=== PATIENT | female | born 1970 | race Caucasian/White ===

== ENCOUNTER 2016-08-28 10:34 | Emergency (ER) | payer SELFPAY ==
--- NOTE | 2016-08-28 10:56 | ED.PDOC ---
History of Present Illness - General Chief Complaint: General Stated Complaint: nausea/vomiting Time Seen by Provider: 08/28/16 10:48 Source: patient, RN notes reviewed, Vital Signs reviewed Exam Limitations: no limitations - History of Present Illness Initial Comments: Amie Bustamante 45 y/o female stated she had nausea vomiting since early this morning with sharp bilateral flank pains and had also watery diarrhea.No fever / chils ill contact.No hematuria,dysuria.Seen Dr. Guerra -urologist in the past. Timing/Duration: 4-6 hours, intermittent Severity: moderate Improving Factors: rest Worsening Factors: nothing Associated Symptoms: denies symptoms Allergies/Adverse Reactions: Allergies NO KNOWN ALLERGY Allergy (Verified 08/28/16 10:56) Home Medications: Ambulatory Orders Naproxen [Naprosyn] 500 mg PO BID #10 tab 08/28/16 Nitrofurantoin Monohydrate Mac [Macrobid] 100 mg PO BID #14 cap 08/28/16 Tramadol HCl 50 mg PO TID PRN #14 tab 08/28/16 Review of Systems - Review of Systems Constitutional: States: no symptoms reported EENTM: States: no symptoms reported Respiratory: States: no symptoms reported Cardiology: States: no symptoms reported Gastrointestinal/Abdominal: States: see HPI Genitourinary: States: no symptoms reported Musculoskeletal: States: no symptoms reported Skin: States: no symptoms reported Neurological: States: no symptoms reported Endocrine: States: no symptoms reported Hematologic/Lymphatic: States: no symptoms reported Past Medical History (General) - Patient Medical History Hx Seizures: No Hx Stroke: No Hx Dementia: No Hx Asthma: Yes Hx of COPD: No Hx Cardiac Disorders: No Hx Congestive Heart Failure: No Hx Pacemaker: No Hx Hypertension: No Hx Thyroid Disease: No Hx Diabetes: No Hx Renal Disease: Yes - Hx kidney stones Hx Cancer: No Hx of HIV: No Hx Hepatitis C: No Hx MRSA: No Surgical History: other - kidney surgery - Vaccination History Hx Tetanus, Diphtheria Vaccination: No Hx Influenza Vaccination: No Hx Pneumococcal Vaccination: No - Social History Hx Tobacco Use: Yes Hx Chewing Tobacco Use: No Hx Alcohol Use: Yes Hx Substance Use: No Hx Substance Use Treatment: No Hx Depression: No Hx Physical Abuse: No Hx Emotional Abuse: No Hx Suspected Abuse: No - Female History Patient : No Family Medical History - Family History Mother Family History: No Known Living Status: Still Living Hx Family Hypertension: Yes - dad Physical Exam - Physical Exam General Appearance: Alert, Anxious, No apparent distress Eye Exam: bilateral normal Ears, Nose, Throat: hearing grossly normal, normal ENT inspection, normal pharynx Neck: non-tender, full range of motion, supple Respiratory: chest non-tender, lungs clear, normal breath sounds Cardiovascular/Chest: normal peripheral pulses, regular rate, rhythm, no edema, no murmur Peripheral Pulses: radial,right: 2+, radial,left: 2+ Gastrointestinal/Abdominal: normal bowel sounds, non tender, soft, no organomegaly Back Exam: normal inspection, no CVA tenderness, no vertebral tenderness Extremity: normal range of motion, non-tender, normal inspection Neurologic: no motor/sensory deficits, alert, normal mood/affect, oriented x 3 Skin Exam: normal color, warm/dry Lymphatic: no adenopathy Progress - Progress Progress: 08/28/16 13:14 Vital Signs - 8 hr 08/28/16 08/28/16 10:56 11:26 Temperature 96.4 F L Pulse Rate 63 Pulse Rate [ 77 Right Radial] Respiratory 20 24 Rate Blood Pressure 143/92 [Right Arm] O2 Sat by Pulse 96 98 Oximetry - Results/Orders Results/Orders: Vital Signs - 8 hr 08/28/16 08/28/16 08/28/16 10:56 11:26 15:00 Temperature 96.4 F L Pulse Rate 63 Pulse Rate [ 77 62 Right Radial] Respiratory 20 24 16 Rate Blood Pressure 143/92 106/70 [Right Arm] O2 Sat by Pulse 96 98 94 L Oximetry 08/28/16 11:07 SVN/Updraft Therapy .ONCE 08/28/16 13:50 URINE CULTURE W/COLONY COUNT Stat Laboratory Results - last 24 hr 08/28/16 08/28/16 08/28/16 11:00 11:00 13:50 WBC 13.5 H RBC 4.52 Hgb 14.2 Hct 41.8 MCV 92.6 MCH 31.4 H MCHC 34.1 RDW 12.7 Plt Count 430 H MPV 8.1 Absolute Neuts (auto) 10.60 H Absolute Lymphs (auto) 1.90 Absolute Monos (auto) 0.50 Absolute Eos (auto) 0.30 Absolute Basos (auto) 0.10 Neutrophils % 79.1 H Lymphocytes % 13.8 L Monocytes % 3.7 Eosinophils % 2.5 Basophils % 0.9 Sodium 144 Potassium 3.5 L Chloride 103 Carbon Dioxide 27 Anion Gap 17.5 BUN 13 Creatinine 0.89 BUN/Creatinine Ratio 14.6 Random Glucose 131 H Serum Osmolality 288.8 Calcium 10.2 Total Bilirubin 0.8 AST 22 ALT 14 Alkaline Phosphatase 72 Serum Total Protein 7.8 Albumin 4.7 Globulin 3.1 Albumin/Globulin Ratio 1.5 Lipase 46 Urine Color Yellow Urine Appearance Cloudy Urine pH 6.5 Ur Specific [place] 1.025 Urine Protein 100 H Urine Glucose (UA) Negative Urine Ketones Negative Urine Blood Trace-lysed H Urine Nitrite Negative Urine Bilirubin Negative Urine Urobilinogen 0.2 Ur Leukocyte Esterase Moderate H Urine RBC 10-20 H Urine WBC >50 H Ur Epithelial Cells 3-5 Urine Bacteria 4+ H - EKG/XRAY/CT XRAY: chest - mild hyperexpansion O/W unremarkable chest CT Ordered: Yes - Abd/pelvis no obstucting calculus-dania.nephrolithiasis Departure - Departure Clinical Impression: Flank pain, acute, Nephrolithiasis UTI (urinary tract infection) Qualifiers: Urinary tract infection type: site unspecified Hematuria presence: with hematuria Qualified Code(s): N39.0 - Urinary tract infection, site not specified Time of Disposition: 16:48 Disposition: Discharge to Home or Self Care Condition: Good Instructions: Kidney Stones -- Adult, DI for Kidney Stones Prescriptions: Naproxen [Naprosyn] 500 mg PO BID #10 tab Nitrofurantoin Monohydrate Mac [Macrobid] 100 mg PO BID #14 cap Tramadol HCl 50 mg PO TID PRN #14 tab PRN Reason: Pain Home Medications: Ambulatory Orders Naproxen [Naprosyn] 500 mg PO BID #10 tab 08/28/16 Nitrofurantoin Monohydrate Mac [Macrobid] 100 mg PO BID #14 cap 08/28/16 Tramadol HCl 50 mg PO TID PRN #14 tab 08/28/16
[2016-08-28] MEDS ORDERED: SODIUM CHLORIDE 0.9% 1000ML 1,000 ML IVS ONE ×2 (10:57→12:56)
[2016-08-28] MEDS ORDERED: ONDANSETRON INJ 4 MG/2 ML VIAL IV ONE (10:57)
[2016-08-28 11:07] VITALS: TEMP 96.4
[2016-08-28] MEDS ORDERED: IPRATROPIUM/ALBUTEROL 3 ML VIAL NEB ONE (11:07)
--- NOTE | 2016-08-28 11:21 | RAD ---
EXAM DESCRIPTION: Chest,1 View CLINICAL HISTORY: sob COMPARISON: 18 December 2009 TECHNIQUE: AP portable chest FINDINGS: The lungs are clear. The chest is hyperexpanded. The heart is within range of normal. IMPRESSION: Mild hyperexpansion the chest is observed. Exam is otherwise unremarkable. Electronically signed by: Martir Torres MD 08/28/2016 11:20 AM CDT
[2016-08-28] MEDS ORDERED: PROMETHAZINE HCL INJ 25 MG/ML VIAL IM ONE (12:07)
[2016-08-28] MEDS ORDERED: cefTRIAXone SODIUM 1 GM in SODIUM CHL 0.9% 50ML MIN-BAG+ 50 ML IVPB ONE (15:22)
[2016-08-28] MEDS ORDERED: cefTRIAXone SODIUM 1 GM VIAL ONE ×2 (15:31→15:57)
[2016-08-28] MEDS ORDERED: SODIUM CHL 0.9% 50ML MIN-BAG+ 50 ML IVPB ONE ×2 (15:32→15:57)
--- NOTE | 2016-08-28 16:09 | CT ---
CT abdomen and pelvis without contrast INDICATION: Abdominal pain subsequent encounter renal stones TECHNIQUE: Helical CT images through the abdomen and pelvis with coronal and sagittal reformats. This exam was performed according to our departmental dose-optimization program, which includes automated exposure control, adjustment of the mA and/or kV according to patient size and/or use of iterative reconstruction technique. FINDINGS: Lung bases are clear. There is moderate right hydronephrosis. No significant left hydronephrosis. There is a large calculus in the left renal pelvis calcified measuring up to 9 mm in diameter. There is a large stone in the lower pole right kidney measuring 8 mm in diameter. Collecting system dilatation is primarily in the upper pole although no definite duplication is identified. No evidence of dilated right ureter. Therefore this may be due to chronic obstruction or stricture. Contrast infused study may be considered for further characterization for any functional obstruction. There is cortical thinning throughout the right kidney. The left kidney appears fairly small. Previous studies showed varying degrees of obstruction with this high-grade obstruction of the left kidney on the prior study October 08, 2015 There is a calcification in or adjacent to the mid left ureter on series 2 image #50 but there is no evidence of obstruction. There is also a calcification just above the bladder in the midline series 2 image 68. No definite ureteral calculus otherwise. Scattered colonic diverticulosis most pronounced in the sigmoid colon. No active inflammation. No intra-abdominal mass or pathologic adenopathy noted. No destructive osseous lesion or acute fracture. There is linear air in the right buttock suspect recent injection in this area. IMPRESSION: Chronic appearing hydronephrosis right kidney with calculus in lower pole Calculus in the left renal pelvis without obstruction Cortical thinning right kidney and fairly small left kidney likely from previous obstruction/infection Sigmoid diverticulosis without acute diverticulitis Electronically signed by: Teodoro Lewis MD 08/28/2016 4:08 PM CDT
[2016-08-28 17:08] VITALS: BP 107/71; O2SAT 93
== END 2016-08-28 17:07 | disposition home or self-care (01) ==
LOC: ER 10:34
DX: N20.0 Calculus of kidney (principal); N39.0 Urinary tract infection, site not specified; Z87.442 Personal history of urinary calculi; Z87.891 Personal history of nicotine dependence
CPT/HCPCS: 36415; 71010; 74176; 80053; 81001; 83690; 85025; 87086; 87088; 87186; 94640; J0696; J2550; J7030; J7050; J7620

== ENCOUNTER 2016-10-09 13:18 | Observation (INO) | payer SELFPAY ==
[2016-10-09] MEDS ORDERED: HYDROmorphone HCL INJ 2 MG/ML VIAL IV ONE (13:32)
[2016-10-09] MEDS ORDERED: KETOROLAC TROMETHAMINE INJ 30 MG/ML VIAL IM ONE (13:32)
[2016-10-09] MEDS ORDERED: SODIUM CHLORIDE 0.9% 1000ML 1,000 ML IVS ONE ×2 (13:32→18:16)
--- NOTE | 2016-10-09 13:58 | RAD ---
One view abdomen. Indication: left flank pain with hx of stones Comparison: September 26, 2015. Impression: No free air. Bowel gas pattern nonspecific. 7 mm stone within the inferior right kidney with a subtle 2 mm stone in the mid right kidney. Along the inferomedial margin the left kidney there is a 12 mm stone, which may lie within the proximal left ureter and appear slightly more inferior and medial when compared to the prior. No acute osseous abnormality. Electronically signed by: Erasmo Villaseñor MD 10/09/2016 1:56 PM CDT
--- NOTE | 2016-10-09 15:07 | CT ---
EXAM DESCRIPTION: Abdomen/Pelvis w/o Contrast CLINICAL HISTORY: left flank pain, hx stones COMPARISON: CT abdomen/pelvis 08/28/2016 TECHNIQUE: CT of the abdomen and pelvis was performed without contrast. Multiple axial images and multiplanar reconstructions were generated. This exam was performed according to our departmental dose-optimization program, which includes automated exposure control, adjustment of the mA and/or kV according to patient size and/or use of iterative reconstruction technique. FINDINGS: Lung bases: The visualized lung bases are clear. Solid organs: There is severe left hydronephrosis with a 9 mm obstructing calculus just distal to the ureteropelvic junction. Punctate 2 mm nonobstructing left renal calculus. There is a nonobstructing 8 mm calculus in the inferior pole of the right kidney. Moderate right hydronephrosis is again demonstrated. Right renal cortical thinning is again demonstrated. Again demonstrated is a punctate calcification adjacent to the mid left ureter on series 2 image 46, favored to be vascular. Evaluation of the solid organs is limited due to lack of IV contrast. The liver, gallbladder, spleen, pancreas, and adrenal glands are unremarkable. Gastrointestinal: The stomach and small intestine are normal. Colonic diverticulosis is demonstrated without CT evidence for diverticulitis. The appendix is normal. No free fluid or free air. Vascular: The abdominal aorta is normal in caliber. Lymph nodes: No pathologically enlarged lymph nodes are present by CT size criteria. Musculoskeletal and soft tissues: No destructive osseous lesions are present. Urinary bladder and pelvic organs: Several foci of gas are again demonstrated in the nondependent portion of the urinary bladder. Calcification just superior to the urinary bladder at the midline again demonstrated. The uterus and adnexal structures are unremarkable. IMPRESSION: 1. Obstructing 9 mm calculus just distal to the left ureteropelvic junction with severe left hydronephrosis. 2. Again demonstrated is moderate right hydronephrosis without an obstructing calculus visualized. Right renal cortical thinning. 3. Bilateral nonobstructing nephrolithiasis. 4. Foci of gas in the urinary bladder. Correlate for recent instrumentation versus infectious/inflammatory etiologies. 5. Extensive colonic diverticulosis. Electronically signed by: Indra Correia MD 10/09/2016 3:05 PM CDT
[2016-10-09] MEDS ORDERED: CEFEPIME 2 GM in SODIUM CHL 0.9% 50ML MIN-BAG+ 50 ML IVPB ONE (17:07)
[2016-10-09] MEDS ORDERED: CEFEPIME 2 GM VIAL IVPB ONE (17:14)
[2016-10-09] MEDS ORDERED: SODIUM CHL 0.9% 50ML MIN-BAG+ 50 ML IVPB ONE (17:14)
--- NOTE | 2016-10-09 17:28 | RAD ---
EXAM DESCRIPTION: KUB CLINICAL HISTORY: 45 years Female right renal stone COMPARISON: 10/09/[address] TECHNIQUE: Single view of the abdomen. FINDINGS: The upper abdomen was not entirely included on the film. No dilated loops of bowel to suggest obstruction. Calculus overlying the region of the right kidney measuring 9 mm consistent with the inferior pole stone seen on the previous study. Calcific density seen in the region of the left ureter on the previous examination may have been displaced into the left renal collecting system adjacent to the L2 transverse process. This measures 1.4 cm. There are degenerative changes in the lumbar spine. IMPRESSION: Stable appearing right renal lower pole calculus The previously noted calcific density in the left ureter is slightly more cephalad on today's examination and may represent displacement of the calculus into the renal pelvis. Electronically signed by: Vanesa Farley 10/09/2016 5:26 PM CDT
--- NOTE | 2016-10-09 18:19 | ED.PDOC ---
History of Present Illness - General Chief Complaint: Problem Stated Complaint: left flank pain Time Seen by Provider: 10/09/16 13:28 Source: patient Exam Limitations: no limitations - History of Present Illness Initial Comments: the patient is a 45-year-old female presenting to the emergency room secondary to severe left flank pain acute onset several hours prior to arrival. The pain does radiate to the groin. It is colicky in nature. It is similar to her previous pain from previous kidney stones. The patient has a history of right renal pelvis dysfunction and chronic hydronephrosis. She has had surgery on the right kidney before. She had lithotripsy on 813 mm stone about a year and half ago according to her with Dr. Guerra. She does get frequent urinary tract infections and the last several urinary tract infections cultured here have grown out Escherichia coli. the patient was feeling largely normal prior to that. No fevers. No flank pain Timing/Duration: 4-6 hours Severity: severe Improving Factors: nothing Worsening Factors: nothing Associated Symptoms: diaphoresis, loss of appetite, malaise, nausea/vomiting, weakness Allergies/Adverse Reactions: Allergies Albuterol [From Ventolin] Allergy (Verified 10/09/16 14:16) Home Medications: Ambulatory Orders Naproxen [Naprosyn] 500 mg PO BID #10 tab 08/28/16 Nitrofurantoin Monohydrate Mac [Macrobid] 100 mg PO BID #14 cap 08/28/16 Tramadol HCl 50 mg PO TID PRN #14 tab 08/28/16 Review of Systems - Review of Systems Constitutional: States: malaise EENTM: States: no symptoms reported Respiratory: States: no symptoms reported Cardiology: States: no symptoms reported Gastrointestinal/Abdominal: States: abdominal pain, nausea, vomiting Genitourinary: States: dysuria, frequency, pain Musculoskeletal: States: back pain Skin: States: no symptoms reported Neurological: States: no symptoms reported Endocrine: States: excessive sweating All other Systems: No Change from Baseline Past Medical History (General) - Patient Medical History Hx Seizures: No Hx Stroke: No Hx Dementia: No Hx Asthma: Yes Hx of COPD: No Hx Cardiac Disorders: No Hx Congestive Heart Failure: No Hx Pacemaker: No Hx Hypertension: No Hx Thyroid Disease: No Hx Diabetes: No Hx Renal Disease: Yes - Hx kidney stones Hx Cancer: No Hx of HIV: No Hx Hepatitis C: No Hx MRSA: No - Vaccination History Hx Tetanus, Diphtheria Vaccination: No Hx Influenza Vaccination: No Hx Pneumococcal Vaccination: No - Social History Hx Tobacco Use: Yes Hx Chewing Tobacco Use: No Hx Alcohol Use: Yes Hx Substance Use: No Hx Substance Use Treatment: No Hx Depression: No Hx Physical Abuse: No Hx Emotional Abuse: No Hx Suspected Abuse: No - Activities of Daily Living Hospice Agency (if applicable):: None - Female History Patient is a Female of Child Bearing Age (10 -59 yrs old): No Patient : No Family Medical History - Family History Mother Family History: No Known Living Status: Still Living Hx Family Hypertension: Yes - dad Physical Exam - Physical Exam General Appearance: Alert, Obvious distress Eye Exam: bilateral normal Ears, Nose, Throat: hearing grossly normal, normal ENT inspection, normal pharynx - oor dentition Neck: full range of motion, supple Respiratory: chest non-tender, lungs clear, normal breath sounds, no respiratory distress, no accessory muscle use Cardiovascular/Chest: normal peripheral pulses, regular rate, rhythm, no edema Peripheral Pulses: radial,right: 2+, radial,left: 2+, dorsalis pedis,right: 2+, dorsalis pedis,left: 2+ Gastrointestinal/Abdominal: non tender, soft Rectal Exam: deferred Back Exam: CVA tenderness (L) Extremity: normal range of motion, non-tender, normal inspection, no pedal edema , normal capillary refill Neurologic: dental officer II-XII nml as tested, alert, oriented x 3 Skin Exam: normal color Comments: Vital Signs - 24 hr 10/09/16 10/09/16 13:20 16:45 Temperature 97 F L Pulse Rate [ 67 60 pulse ox] Respiratory 20 16 Rate Blood Pressure 159/79 94/61 [Right Arm] O2 Sat by Pulse 95 97 Oximetry Progress - Progress Progress: 10/09/16 18:36 he patient is a 45-year-old female presenting to the emergency room secondary to pain from an obstructing left kidney stone. She does also appear to have a urinary tract infectionand a poorly functioning right kidney. I have discussed the patient with Dr. Barragan at [facility] who recommended treating her here overnight with pain medications as necessary as well as IV antibiotics and fluids. In the morning, as she is not septic she should be able to be sent to Dr. Dowds clinic for lithotripsy. The patient has empirically been placed on cefepime based on previous culture. Follow closely overnight. - Results/Orders Results/Orders: Laboratory Results - last 24 hr 10/09/16 10/09/16 10/09/16 13:40 13:40 13:40 WBC 13.6 H RBC 4.71 Hgb 14.8 Hct 43.7 MCV 92.7 MCH 31.4 H MCHC 33.9 RDW 13.1 Plt Count 311 MPV 8.3 Absolute Neuts (auto) 11.60 H Absolute Lymphs (auto) 1.30 Absolute Monos (auto) 0.50 Absolute Eos (auto) 0.10 Absolute Basos (auto) 0.00 Neutrophils % 85.8 H Lymphocytes % 9.5 L Monocytes % 3.4 Eosinophils % 1.0 Basophils % 0.3 PT 10.7 INR 0.950 PTT (SP) 36.9 H Sodium 141 Potassium 4.1 Chloride 106 Carbon Dioxide 23 Anion Gap 16.1 BUN 12 Creatinine 0.97 BUN/Creatinine Ratio 12.4 Random Glucose 163 H Serum Osmolality 284.6 Calcium 10.5 H Total Bilirubin 1.2 H AST 20 ALT 12 Alkaline Phosphatase 63 Serum Total Protein 7.8 Albumin 4.7 Globulin 3.1 Albumin/Globulin Ratio 1.5 Urine Color Urine Appearance Urine pH Ur Specific [place] Urine Protein Urine Glucose (UA) Urine Ketones Urine Blood Urine Nitrite Urine Bilirubin Urine Urobilinogen Ur Leukocyte Esterase Urine RBC Urine WBC Ur Epithelial Cells Urine Bacteria 10/09/16 16:30 WBC RBC Hgb Hct MCV MCH MCHC RDW Plt Count MPV Absolute Neuts (auto) Absolute Lymphs (auto) Absolute Monos (auto) Absolute Eos (auto) Absolute Basos (auto) Neutrophils % Lymphocytes % Monocytes % Eosinophils % Basophils % PT INR PTT (SP) Sodium Potassium Chloride Carbon Dioxide Anion Gap BUN Creatinine BUN/Creatinine Ratio Random Glucose Serum Osmolality Calcium Total Bilirubin AST ALT Alkaline Phosphatase Serum Total Protein Albumin Globulin Albumin/Globulin Ratio Urine Color Yellow Urine Appearance Turbid Urine pH 6.0 Ur Specific [place] >= 1.030 Urine Protein >=300 H Urine Glucose (UA) Negative Urine Ketones Negative Urine Blood Moderate H Urine Nitrite Positive H Urine Bilirubin Negative Urine Urobilinogen 0.2 Ur Leukocyte Esterase Small H Urine RBC Tntc H Urine WBC Tntc H Ur Epithelial Cells 1-3 Urine Bacteria 4+ H Departure - Departure Clinical Impression: Ureterolithiasis Urinary tract infection Qualifiers: Urinary tract infection type: acute cystitis Hematuria presence: with hematuria Qualified Code(s): N30.01 - Acute cystitis with hematuria Disposition: Admit Patient Home Medications: Ambulatory Orders Naproxen [Naprosyn] 500 mg PO BID #10 tab 08/28/16 Nitrofurantoin Monohydrate Mac [Macrobid] 100 mg PO BID #14 cap 08/28/16 Tramadol HCl 50 mg PO TID PRN #14 tab 08/28/16 Decision To Admit - Decistion To Admit Decision to Admit Reason: Medical Nature Decision to Admit Date: 10/09/16 Decision to Admit Time: 18:39
--- NOTE | 2016-10-09 18:25 | HP ---
SUPERVISING PHYSICIAN: Brien Reyes M.D. CHIEF COMPLAINT: Left flank pain. HISTORY OF PRESENT ILLNESS: Ms. Matute is a 45 year-old female patient with a longstanding history of chronic kidney stones. She presented to the Emergency Department today complaining that she was having severe left flank pain that was acute onset several hours before she was presenting to the Emergency Department. She noted the pain was radiating into her groin. She notes that it is a similar pain that she has had in the past from her kidney stones. She does have a history of right renal pelvis dysfunction and chronic hydronephrosis. She has also had surgery previously on her right kidney. She has had a lithotripsy in the past for a 13 mm stone about a year ago performed by Dr. Guerra. She also notes that she gets frequent urinary tract infections with the last culture noted on last E. R. visit to be 08/28/16 with Escherichia coli. An abdominal/pelvic CT was completed that showed she had an obstructing 9 mm calculous just distal to the left ureteropelvic junction with severe left hydronephrosis. There is also mention in the CT that she had a moderate right hydronephrosis without any obstructing calculous visualize with right renal cortical thinning. Laboratory studies showed that she had a leukocytosis of 13.6 with hemoglobin 14.8, hematocrit 43.7, platelet count 311,000. Differential did show a left shift. Coagulation studies showed a normal PT with a slightly elevated PTT of 36.9. Chemistries showed normal electrolytes with potassium 4.1, bilirubin was slightly elevated at 1.2. All other liver functions were within normal limits. Urinalysis showed large amount of protein being greater than 300 with a moderate amount of blood, positive nitrites, small amount of leukocyte esterase and microscopic revealing too numerous to count RBCs and WBCs with 4+ bacteria and only [address] Quintero, E. R. physician, contacted Dr. Barragan in regards to the findings with the concerns for the obstructing left kidney stone and he recommended treating her at [facility] overnight with pain medications as needed as well as some IV antibiotics and fluids, and if she is not presenting as septic tomorrow morning she should be able to present to Dr. Guerra's office for lithotripsy. She was started on Cefepime given the previous culture results and the severity of her previous infections as well as the obstructing renal stone. She will now be placed in Observation for further treatment and evaluation. PAST MEDICAL HISTORY: 1. Lengthy history of multiple kidney stones. 2. Asthma. PAST SURGICAL HISTORY: 1. Right kidney surgery at age 14. 2. She has had 1 basket retrieval with stent placement. 3. Lithotripsy for an obstructing kidney stone performed by Dr. Guerra. CURRENT MEDICATIONS: 1. Ventolin handheld inhaler every 4 hours as needed. ALLERGIES: BEE STINGS. FAMILY HISTORY: Significant for diabetes and hypertension. SOCIAL HISTORY: She lives in [place]. She is unemployed. She does admit to smoking about 1/2 pack a day for well over 25 years. She does drink alcohol but on a very rare basis. Denies any illicit drug use. REVIEW OF SYSTEMS: CONSTITUTIONAL: She notes that she has had some general aches and malaise but no reported fevers. HEENT: Denies any nasal congestion, headaches, vision changes. RESPIRATORY: Does have some wheezing and a cough that is nonproductive, but history of asthma. CARDIOVASCULAR: Denies any chest pains, palpitations or any syncopal episodes. ABDOMEN: Some mild abdominal pain on the left with nausea and vomiting. GENITOURINARY: As noted, dysuria, frequency and pain with History of Present Illness a noted above. NEUROLOGIC: Denies any syncopal episodes or neurological symptoms such as dizziness, ataxia or other neuromotor deficits. PHYSICAL EXAMINATION: VITAL SIGNS: Temperature on admission was 96.4, pulse 60, blood pressure 94/61 , respirations 16, satting 97% on room air. Admission weight 43.2 kg. GENERAL: On examination in the Emergency Room, the patient was resting and comfortable, and appeared to be in no acute distress, but was noted to be in obvious distress on admission prior to administration of pain medicine to include Toradol and Dilaudid. HEENT: Tympanic membranes were clear bilaterally. Oropharynx was pink and moist with notable poor dentition but no lesions. NECK: Supple, non-tender with full range of motion. No jugular venous distention. CHEST: Some faint rhonchi posteriorly on the bilateral bases, otherwise lungs are clear to auscultation. CARDIOVASCULAR: Regular rate and rhythm without appreciable murmurs, gallops, or rubs. ABDOMEN: Non-tender, soft with positive bowel sounds. BACK: She had notable CVA tenderness on the left, none on the right. EXTREMITIES: No clubbing, cyanosis or edema. NEUROLOGIC: She was alert and oriented times three. Cranial nerves II-XII are grossly intact. There was no notable neuromotor sensory deficit. LABORATORY: White count showed a leukocytosis of 13.6, hemoglobin 14.8, hematocrit 43.7, platelet count 311,000. Differential did show a left shift. Coagulation studies showed just a slightly elevated PTT of 36.9. Chemistries showed normal electrolytes with potassium 4.1, BUN 12, creatinine 0.97, calcium 10.5. Total bilirubin was 1.2. Other liver functions showed to be within normal limits. Urinalysis showed greater than 300 of protein with a moderate amount of blood, positive nitrites, small amount of leukocyte esterase. Microscopic revealed too numerous to count RBCs and WBCs, 1 to 3 epithelials with 4+ bacteria. Urine HCG was negative. MICROBIOLOGY: Urine culture is pending. RADIOLOGY: Initially she had a KUB x-ray in the Emergency Department per radiology interpretation there was note of nonspecific bowel gas pattern. No free air. A 7 mm stone in the inferior right kidney with subtle 2 mm stone in the mid right kidney along with the inferomedial margin left kidney there was a 12 mm stone which may lie within the proximal left ureter in appearance. This was followed-up with a CT abdomen and pelvis with contrast and per radiology interpretation there was note of obstructing 9 mm calculous distal to the left ureteropelvic junction with severe left hydronephrosis. Also was noted again demonstrated moderate right hydronephrosis without any obstructing calculous visualized. There was note of extensive colonic diverticulosis. ASSESSMENT: 1. Obstructing 9 mm renal calculous in the left ureteropelvic junction with severe hydronephrosis. 2. Chronic moderate right hydronephrosis without any mention of obstructing calculous visualized. 3. Bilateral nonobstructing nephrolithiasis. 4. CT evidence of extensive colonic diverticulosis but no mention of diverticulitis. 5. Complicated cystitis secondary to extensive history of multiple urinary tract infections and nephrolithiasis with hydronephrosis and current obstructing calculous in the left kidney. 6. Chronic obstructive pulmonary disease and asthma. 7. Chronic tobacco abuse. 8. Leukocytosis secondary to developing cystitis with some possible demarginalization from pain from number 1. PLAN: The patient will be placed in Observation tonight and started in fluids, given Zofran as needed and Surrency for pain control. She was given Toradol in the Emergency Department 60 mg IM as well as started on antibiotic therapy to include Cefepime which will be continued based off past history and a history of complicated urinary tract infection, and chronic nephrolithiasis awaiting final culture results to further target antibiotic therapy. Dr. Quintero did call and talk to Dr. Barragan as noted above in regards to if the patient is stable , discharge the patient to followup with Dr. Guerra in the office in the morning for possible lithotripsy. Will await reassessment in the morning with repeat laboratory studies and should the patient show to be clinically stable and able to be discharged, I will discuss with Dr. Guerra arrangements for lithotripsy. Will anticipate length of stay to be 1 to 2 days. Given her rhonchi and past history of COPD and asthma with a cough, will start her on some DuoNeb treatments as well. Until discharge, will continue to monitor the patient closely and treat appropriately. #[id number] [facility]
[2016-10-09] MEDS ORDERED: SODIUM CHLORIDE 0.9% (FLUSH) 10 ML SYG IV PRN (19:12)
[2016-10-09] MEDS ORDERED: HYDROcodone 5MG/APAP 325MG 1 EA TAB PO PRN (19:15)
[2016-10-09] MEDS ORDERED: KCL 20MEQ/0.45% NS 1,000 ML IVS PRN (19:20)
[2016-10-09] MEDS ORDERED: ONDANSETRON INJ 4 MG/2 ML VIAL IV PRN (19:22)
[2016-10-09] MEDS ORDERED: ACETAMINOPHEN 325 MG TAB PO PRN (19:23)
[2016-10-09] MEDS ORDERED: IV SET AND CAP CHANGE INJ INJ SCH (19:30)
[2016-10-09] MEDS: ALBUTEROL SULFATE 2.5 MG/3 ML VIAL NEB SCH (21:37)
[2016-10-10] MEDS ORDERED: CEFEPIME 2 GM VIAL IVPB ONE (02:31)
[2016-10-10] MEDS ORDERED: SODIUM CHLORIDE 0.9% 50ML 50 ML ONE (02:32)
[2016-10-10] MEDS ORDERED: CEFEPIME 2 GM in SODIUM CHL 0.9% 50ML MIN-BAG+ 50 ML IVPB SCH (06:00)
[2016-10-10] MEDS: ALBUTEROL SULFATE 2.5 MG/3 ML VIAL NEB SCH (08:15)
[2016-10-10 10:18] VITALS: BP 100/66; TEMP 98.8; O2SAT 97
[2016-10-10] MEDS ORDERED: KETOROLAC TROMETHAMINE INJ 30 MG/ML VIAL IV ONE (10:27)
--- NOTE | 2016-10-14 10:36 | DS ---
SUPERVISING PHYSICIAN: Brien Reyes MD DISCHARGE DIAGNOSIS: 1. Obstructing 9 mm renal calculous in the left ureteropelvic junction with severe hydronephrosis. 2. Chronic moderate right hydronephrosis without any mention of obstructing calculous visualized. 3. Bilateral nonobstructing nephrolithiasis. 4. CT evidence of extensive colonic diverticulosis, but no mention of diverticulitis. 5. Complicated cystitis secondary to extensive history of multiple urinary tract infections and nephrolithiasis with hydronephrosis and current obstructing calculous in the left kidney. 6. Chronic obstructive pulmonary disease with asthma. 7. Chronic tobacco abuse. 8. Leukocytosis secondary to developing cystitis with some possible demargination from pain from #1. HISTORY OF PRESENT ILLNESS: Ms. Matute is a 45-year-old, female patient with a longstanding history of chronic kidney stones. She presented to the Emergency Department complaining that she was having severe left flank pain that was acute onset several hours before she presenting to the Emergency Department. She noted the pain was radiating into her groin. She notes that it is a similar pain that she has had in the past from her kidney stones. She does have a history of right renal pelvis dysfunction and chronic hydronephrosis. She has also had surgery previously on her right kidney. She has had a lithotripsy in the past for a 13 mm stone about a year previous performed by Dr. Guerra. She also notes that she gets frequent urinary tract infections with her stones and the last culture noted on last Emergency Room visit on 08/28/16 with Escherichia coli. An abdominal/pelvic CT was completed in the Emergency Department that showed she had an obstructing 9 mm calculous just distal to the left ureteropelvic junction with severe left hydronephrosis. There is also mention in the CT that she had a moderate right hydronephrosis without any obstructing calculous visualized with right renal cortical thinning. Laboratory studies showed that she had a leukocytosis of 13.6 with hemoglobin 14.8, hematocrit 43.7, platelet count 311,000. Differential did show a left shift. Coagulation studies showed a normal PT with a slightly elevated PTT of 36.9. Chemistries showed normal electrolytes with potassium 4.1 , bilirubin was slightly elevated at 1.2. All other liver functions were within normal limits. Urinalysis showed large amount of protein being greater than 300 with a moderate amount of blood, positive nitrites, small amount of leukocyte esterase and microscopic revealing too numerous to count RBCs and WBCs with 4+ bacteria and only [address] Quintero, ER physician, contacted Dr. Barragan in regards to the findings with the concerns for the obstructing left kidney stone and he recommended treating her at [facility] overnight with pain medications, IV antibiotics and fluids, and if she is not presenting as septic the next morning, she would be able to present to Dr. Guerra's office for lithotripsy the following Thursday. She was started on cefepime given the previous culture results and the severity of her previous infections as well as the obstructing renal stone. She was placed in Observation for further treatment and evaluation in stable condition. LABORATORY: White count did show a leukocytosis of 13.6 initially and at discharge was 7.7. Hemoglobin and hematocrit stabilized at 12.2 and 36.3. Platelet count 204,000. Differential did show an initial left shift, but this resolved with initiation of antibiotics. PT 10.7, PT-T 36.9. Chemistries showed normal electrolytes with potassium 4.1. At discharge, it was 3.6. BUN 13, creatinine 0.82. Liver functions showed slightly elevated bilirubin of 1.2 , otherwise liver functions within normal limits. Urinalysis showed greater than 300 protein, moderate amount of blood, positive nitrates, small amount of leukocyte esterase. Microscopic revealed too numerous to count WBCs and RBCs, 1 to 3 epithelials and 4+ bacteria. Urine HCG was negative. MICROBIOLOGY: Final urine culture did show an Escherichia coli was that resistant to ampicillin, Unasyn, Cipro, levofloxacin, piperacillin, and tobramycin, but sensitive to Bactrim, which was what the patient was sent home on. RADIOLOGY: KUB x-ray in the Emergency Department on admission which showed 7 mm stone within the inferior right kidney with a subtle 2 mm stone in the right mid kidney along with inferomedial margin of the left kidney with a 12 mm stone which may lie within the proximal left ureter and appears slightly more inferior and medial when compared to previous. There was noted bowel gas pattern to be nonspecific. This was followed up with a CT of the abdomen and pelvis without contrast and per radiologic interpretation there was noted obstructing 9 mm calculus just distal to the left ureteropelvic junction with severe hydronephrosis. There was again demonstrated a moderate right hydronephrosis without any obstructing calculus visualized and right renal cortical thinning. There was also note of bilateral nonobstructing nephrolithiasis. Also was noted foci of gas within the urinary bladder which was to be correlated by instrumentation versus infectious or inflammation etiology. Also, extensive colonic diverticulosis. HOSPITAL COURSE: Ms. Urena was placed in observation as noted in history of present illness for an obstructing calculi. She was given pain medicine with Toradol IM, Phenergan and IV fluids. She did have near resolution of her pain with Toradol. On the morning of discharge, pain was well controlled. She was stable. She was having no nausea or vomiting and had been started on cefepime. PLAN: The patient was discharged on 10/10/16 with instructions to followup with Dr. Guerra the coming Thursday for possible lithotripsy procedure. She was to resume home medications as directed and take all other medications as instructed. She was encouraged to drink fluids to prevent dehydration. She was to screen her urine and if any stones were passed, to save and take to Dr. Guerra on her followup visit. She was told to return to the hospital should she have any worsening of her pain or any fevers or any other concerning symptoms. At discharge, prescriptions included: 1. Ultram 1 to 2 capsules q.4h. as needed, #30 (written by Dr. Guerra and sent to [facility]). 2. AZO urinary pain relief 2 tablets 3 times daily as needed for pain. 3. Bactrim DS 1 twice daily, #20. Diet at discharge was usual as tolerated. Activity to increase as tolerated. Discharge condition was stable and improved. [facility][id number] [facility]
== END 2016-10-10 12:30 | disposition home or self-care (01) ==
LOC: ER 13:18 → MS 18:25
PROVIDERS: ADMIT Nurse Practitioner Family; ATTEND Nurse Practitioner Family
DX: N13.2 Hydronephrosis with renal and ureteral calculous obstruction (principal); K57.30 Diverticulosis of large intestine without perforation or abscess without bleeding; N30.01 Acute cystitis with hematuria; B96.20 Unspecified Escherichia coli [E. coli] as the cause of diseases classified elsewhere; J44.9 Chronic obstructive pulmonary disease, unspecified; J45.909 Unspecified asthma, uncomplicated; F17.210 Nicotine dependence, cigarettes, uncomplicated; D72.829 Elevated white blood cell count, unspecified; Z87.442 Personal history of urinary calculi; Z79.899 Other long term (current) drug therapy; Z91.030 Bee allergy status; Z83.3 Family history of diabetes mellitus; Z82.49 Family history of ischemic heart disease and other diseases of the circulatory system
CPT/HCPCS: 36415 ×2; 74000 ×2; 74176; 80048; 80053; 81001; 81025; 85025 ×2; 85610; 85730; 87086; 87088; 87186; 94640 ×2; 96361 ×2; 96365; 96372; 96375 ×2; 96376; 99284; 99406; A4216; G0378; J0692 ×2; J1170; J1885 ×2; J3480; J7030 ×2; J7050; J7611 ×2

== ENCOUNTER 2017-04-08 17:16 | Emergency (ER) | payer SELFPAY ==
[2017-04-08] MEDS ORDERED: KETOROLAC TROMETHAMINE INJ 30 MG/ML VIAL IV ONE (19:05)
[2017-04-08] MEDS ORDERED: ONDANSETRON INJ 4 MG/2 ML VIAL IV ONE (19:06)
--- NOTE | 2017-04-08 19:09 | ED.PDOC ---
History of Present Illness - General Chief Complaint: Problem Stated Complaint: Left lower back discomfort Time Seen by Provider: 04/08/17 19:05 Source: patient Exam Limitations: no limitations - History of Present Illness Initial Comments: ACUTE ONSET OF LEFT FLANK PAIN AT 1630 HRS. SHE HAS A HX OF RENAL COLIC AND THIS FEELS LIKE ONE. Timing/Duration: just prior to arrival Quality: severe Onset Location: left flank Radiation: LLQ Activites at Onset: none Improving Factors: nothing Worsening Factors: nothing Associated Symptoms: denies symptoms Allergies/Adverse Reactions: Allergies NO KNOWN ALLERGY Allergy (Verified 10/09/16 20:55) Home Medications: Ambulatory Orders Albuterol Inhaler [Ventolin Hfa Inhaler] 1 puff INH PRN PRN 10/09/16 Ketorolac Tromethamine 10 mg PO TID #15 tab 04/08/17 Tramadol HCl 50 mg PO Q6HRS #20 tab 04/08/17 levoFLOXacin [Levaquin] 500 mg PO DAILY #10 tab 04/08/17 Review of Systems - Review of Systems Constitutional: States: malaise EENTM: States: no symptoms reported Respiratory: States: no symptoms reported Cardiology: States: no symptoms reported Gastrointestinal/Abdominal: States: nausea, vomiting Genitourinary: States: dysuria, other - FLANK PAIN Musculoskeletal: States: back pain Skin: States: no symptoms reported Neurological: States: no symptoms reported Endocrine: States: no symptoms reported Hematologic/Lymphatic: States: no symptoms reported Past Medical History (General) - Patient Medical History Hx Seizures: No Hx Stroke: No Hx Dementia: No Hx Asthma: Yes Hx of COPD: Yes Hx Cardiac Disorders: No Hx Congestive Heart Failure: No Hx Pacemaker: No Hx Hypertension: No Hx Thyroid Disease: No Hx Diabetes: No Hx Renal Disease: - Hx kidney stones Hx Cancer: No Hx of HIV: No Hx Hepatitis C: No Hx MRSA: No Surgical History: tonsillectomy - Vaccination History Hx Tetanus, Diphtheria Vaccination: No Hx Influenza Vaccination: No Hx Pneumococcal Vaccination: No - Social History Hx Tobacco Use: Yes Hx Chewing Tobacco Use: No Hx Alcohol Use: No Hx Substance Use: No Hx Substance Use Treatment: No Hx Depression: No Hx Physical Abuse: No Hx Emotional Abuse: No Hx Suspected Abuse: No - Female History Patient is a Female of Child Bearing Age (10 -59 yrs old): No Patient : No Family Medical History - Family History Mother Family History: No Known Living Status: Still Living Hx Family Hypertension: Yes - dad Physical Exam - Physical Exam General Appearance: Alert, Obvious distress Eyes, Ears, Nose, Throat Exam: PERRL/EOMI, normal ENT inspection Neck: non-tender, full range of motion Cardiovascular/Respiratory: regular rate, rhythm, normal peripheral pulses Gastrointestinal/Abdominal: normal bowel sounds, non tender, soft, no organomegaly, no pulsatile mass Rectal Exam: deferred Back Exam: normal inspection, CVA tenderness (L) Extremity: normal range of motion, non-tender, normal inspection, no pedal edema Neurologic: normal mood/affect, oriented x 3 Skin Exam: normal color Progress - Results/Orders Results/Orders: LAB IS REPORTED: WBC'S OF 17,000, 80% SEGMENTED NEUTROPHILS,; THE UA HAS TNTC WBC'S AND RBC'S. WILL OBTAIN A CT ABDOMEN TO R/O STONE. THE PAIN IS IMPROVED TO 4/10 THE IMAGING IS REPORTED. THERE IS A 10 MM STONE ON THE LEFT PROXIMAL URETER WITH MOD HYDRONEPHROSIS. THERE ARE ALSO TWO SMALLER STONES NOTED ON THE LEFT MID URETER. THE PATIENT IS PAIN FREE AT THIS TIME. SHE HAS SEEN DR. GUZMAN IN THE PAST AND I HAVE RECOMMENDED THAT SHE SEES HIM VERY SOON. A COPY OF THE CT SCAN WILL BE PROVIDED TO THE PATIENT. Departure - Departure Clinical Impression: Ureterolithiasis Urinary tract infection Qualifiers: Urinary tract infection type: site unspecified Hematuria presence: with hematuria Qualified Code(s): N39.0 - Urinary tract infection, site not specified Time of Disposition: 22:41 Disposition: Discharge to Home or Self Care Condition: Good Departure Forms: ED Discharge - Pt. Copy, Patient Portal Self Enrollment Instructions: DI for Kidney Infection, DI for Kidney Stones Diet: resume usual diet Activity: increase activity as tolerated Referrals: KATHY GUZMAN MD [Referring] - 1-2 Days Prescriptions: Tramadol HCl 50 mg PO Q6HRS #20 tab Ketorolac Tromethamine 10 mg PO TID #15 tab levoFLOXacin [Levaquin] 500 mg PO DAILY #10 tab Home Medications: Ambulatory Orders Albuterol Inhaler [Ventolin Hfa Inhaler] 1 puff INH PRN PRN 10/09/16 Ketorolac Tromethamine 10 mg PO TID #15 tab 04/08/17 Tramadol HCl 50 mg PO Q6HRS #20 tab 04/08/17 levoFLOXacin [Levaquin] 500 mg PO DAILY #10 tab 04/08/17
[2017-04-08] MEDS ORDERED: cefTRIAXone SODIUM 1 GM in SODIUM CHL 0.9% 50ML MIN-BAG+ 50 ML IVPB ONE (21:21)
[2017-04-08] MEDS ORDERED: SODIUM CHL 0.9% 50ML MIN-BAG+ 50 ML IVPB ONE (21:34)
[2017-04-08] MEDS ORDERED: cefTRIAXone SODIUM 1 GM VIAL ONE (21:34)
--- NOTE | 2017-04-08 22:04 | CT ---
EXAM DESCRIPTION: Abdoment/Pelvis w/o Contrast CLINICAL HISTORY: left flank pain COMPARISON: None Available. TECHNIQUE: Contiguous axial images of the abdomen and pelvis were obtained followed by reconstruction images. This exam was performed according to our departmental dose-optimization program, which includes automated exposure control, adjustment of the mA and/or kV according to patient size and/or use of iterative reconstruction technique. FINDINGS: Stone in the right kidney measures approximately 6 mm. Stone in the proximal left ureter measures 10 mm. In the mid left ureter are two stones measuring up to 6 mm. There is moderate to moderately severe left hydronephrosis and moderate right hydronephrosis. There is colonic diverticulosis without evidence of diverticulitis. The urinary bladder is not well distended. There is mild irregular thickening of the posterior urinary bladder wall, which is nonspecific. This could be transient related to underdistention. Cystitis is not excluded. Neoplasm is much less likely. The gallbladder is unremarkable by CT criteria. Adrenal glands are within normal limits. Aorta is of normal caliber and tapering. There is no free fluid in the abdomen or pelvis. There is no bowel obstruction. There is no stranding of the mesenteric fat to suggest an inflammatory response. IMPRESSION: Left ureteral stones. Bilateral hydronephrosis. See additional findings above. Electronically signed by: Lyndon Diehl 04/08/2017 10:03 PM [facility]
[2017-04-08 23:06] VITALS: BP 95/60; TEMP 98.3; O2SAT 90
== END 2017-04-08 23:10 | disposition home or self-care (01) ==
LOC: ER 17:16
DX: N13.2 Hydronephrosis with renal and ureteral calculous obstruction (principal); N39.0 Urinary tract infection, site not specified; J44.9 Chronic obstructive pulmonary disease, unspecified
CPT/HCPCS: 36415; 74176; 80053; 81001; 85025; 87086; J0696; J1885; J2405; J7050

== ENCOUNTER 2017-04-17 19:42 | Emergency (ER) | payer SELFPAY ==
[2017-04-17] MEDS ORDERED: KETOROLAC TROMETHAMINE INJ 30 MG/ML VIAL IV ONE (20:46)
[2017-04-17] MEDS ORDERED: ONDANSETRON INJ 4 MG/2 ML VIAL IV ONE (20:47)
[2017-04-17] MEDS ORDERED: SODIUM CHLORIDE 0.9% 1000ML 1,000 ML IVS ONE (20:47)
--- NOTE | 2017-04-17 20:49 | ED.PDOC ---
History of Present Illness - General Chief Complaint: Abdominal Pain Stated Complaint: Abd pain Time Seen by Provider: 04/17/17 20:44 Information Source: patient Exam Limitations: no limitations - History of Present Illness Initial Comments: LEFT FLANK PAIN, ONSET SEVERAL HOURS AGO. SHE HAS A HX OF RENAL COLIC AND AND WAS RECENTLY SEEN IN THE ED FOR THE SAME. SHE RATES THE PAIN AT 8/10 ASSOCIATED WITH NAUSEA AND VOMITING. SHE WAS HERE A WEEK AGO WITH SIMILAR PROBLEMS. DID NOT F/U WITH UROLOGIST. Abdominal Pain Onset Location: LLQ, flank Quality: severe Timing/Duration: 1-3 hours Improving Factors: nothing Worsening Factors: nothing Associated Symptoms: back pain, nausea/vomiting Review of Systems - Review of Systems Constitutional: States: no symptoms reported EENTM: States: no symptoms reported Respiratory: States: no symptoms reported Cardiology: States: no symptoms reported Gastrointestinal/Abdominal: States: abdominal pain, nausea, vomiting Genitourinary: States: dysuria Musculoskeletal: States: no symptoms reported Skin: States: no symptoms reported Neurological: States: no symptoms reported Endocrine: States: no symptoms reported Hematologic/Lymphatic: States: no symptoms reported All other Systems: Reviewed and Negative Past Medical History (General) - Patient Medical History Hx Seizures: No Hx Stroke: No Hx Dementia: No Hx Asthma: Yes Hx of COPD: No Hx Cardiac Disorders: No Hx Congestive Heart Failure: No Hx Pacemaker: No Hx Hypertension: No Hx Thyroid Disease: No Hx Diabetes: No Hx Gastroesophageal Reflux: No Hx Renal Disease: Yes - Hx of Kidney stones Hx Cancer: No Hx of HIV: No Hx Hepatitis C: No Hx MRSA: No Surgical History: tonsillectomy, other - Vaccination History Hx Tetanus, Diphtheria Vaccination: No Hx Influenza Vaccination: No Hx Pneumococcal Vaccination: No - Social History Hx Tobacco Use: Yes Hx Chewing Tobacco Use: No Hx Alcohol Use: No Hx Substance Use: No Hx Substance Use Treatment: No Hx Depression: No Hx Physical Abuse: No Hx Emotional Abuse: No Hx Suspected Abuse: No - Female History Patient is a Female of Child Bearing Age (10 -59 yrs old): Yes - LMP 5 years ago states Patient : No - Triage Comment ED Triage Comment: Presents to ED--POV--AMB---C/O abd pain--LLQ pain--tender to touch---N/V states--No N/V noted in ER---no diarrhea. Family Medical History - Family History Mother Family History: Unknown Living Status: Still Living Hx Family Hypertension: Yes - dad Physical Exam - Physical Exam General Appearance: Alert, Obvious distress Eyes, Ears, Nose, Throat Exam: PERRL/EOMI, normal ENT inspection Neck: non-tender, full range of motion Respiratory: chest non-tender, lungs clear, normal breath sounds, no respiratory distress Cardiovascular/Chest: normal peripheral pulses, regular rate, rhythm, no edema, no gallop, no JVD Peripheral Pulses: No deficit Gastrointestinal/Abdominal: normal bowel sounds, soft, no organomegaly, no pulsatile mass Rectal Exam: deferred Back Exam: normal inspection, CVA tenderness (L) Extremity: normal range of motion, non-tender, normal inspection Progress - Results/Orders Results/Orders: URINE WITH OVER 50 WBC'S AND RBC'S. REVIEWED HER CT ABDOMEN AND PELVIS FRON ONE WEEK AGO SHE HAS TWO STONES ON THE LEFT URETER, ONE PROXIMAL 10 MM AND ONE MID URETER 6 MM. Departure - Departure Clinical Impression: Ureterolithiasis Time of Disposition: 22:07 Disposition: Discharge to Home or Self Care Condition: Good Departure Forms: ED Discharge - Pt. Copy, Patient Portal Self Enrollment Instructions: DI for Abdominal Pain-Adult, DI for Kidney Stones Referrals: KATHY GUZMAN MD [Referring] - 1-2 Weeks Prescriptions: Tramadol HCl 50 mg PO Q6HRS #20 tab Ciprofloxacin [Cipro] 500 mg PO BID #20 tab Home Medications: Ambulatory Orders Albuterol Inhaler [Ventolin Hfa Inhaler] 1 puff INH PRN PRN 10/09/16 Ketorolac Tromethamine 10 mg PO TID #15 tab 04/08/17 Tramadol HCl 50 mg PO Q6HRS #20 tab 04/08/17 levoFLOXacin [Levaquin] 500 mg PO DAILY #10 tab 04/08/17 Ciprofloxacin [Cipro] 500 mg PO BID #20 tab 04/17/17 Tramadol HCl 50 mg PO Q6HRS #20 tab 04/17/17
[2017-04-17] MEDS ORDERED: cefTRIAXone SODIUM 1 GM in SODIUM CHL 0.9% 50ML MIN-BAG+ 50 ML IVPB ONE (22:02)
[2017-04-17] MEDS ORDERED: SODIUM CHL 0.9% 50ML MIN-BAG+ 50 ML IVPB ONE (22:13)
[2017-04-17] MEDS ORDERED: cefTRIAXone SODIUM 1 GM VIAL ONE (22:13)
[2017-04-17 23:00] VITALS: BP 108/73; TEMP 98.2; O2SAT 92
== END 2017-04-17 22:35 | disposition home or self-care (01) ==
LOC: ER 19:42
DX: N20.1 Calculus of ureter (principal); Z87.442 Personal history of urinary calculi
CPT/HCPCS: 36415; 80053; 81001; 85025; 87086; J0696; J1885; J2405; J7030; J7050